=== PATIENT | male | born 1995 | race Caucasian/White ===

== ENCOUNTER 2021-02-20 13:15 | Emergency (ER) | payer OTHER ==
[~2021-02-20] VITALS: Ht 177.8 cm; Wt 68.0 kg
[2021-02-20 14:21] LABS: ABSOLUTE LYMPHOCYTES 1.7 thou/uL (0.8-5.3); ABSOLUTE MONOCYTES 0.3 thou/uL (0.0-1.2); ABSOLUTE NEUTROPHILS 3.2 thou/uL (1.6-8.1); BASOPHILS 0.8 %; EOSINOPHILS 0.2 %; HEMATOCRIT 41.4 % (42.0-52.0); HEMOGLOBIN 13.8 gm/dL (14.0-18.0); LYMPHOCYTES 32.9 %; MCH 25.9 pg (26.0-34.0); MCHC 33.2 g/dL (28.0-37.0); MCV 77.9 fL (80.0-100.0); MONOCYTES 4.8 %; NUCLEATED RBCS 0 /100WBC; PLATELET COUNT* 397 thou/uL (150-400); POLYS 61.3 %; RBC 5.32 mil/uL (4.50-6.00); RDW-CV 14.7 % (10.5-14.5); WBC 5.3 thou/uL (4.0-11.0)
[2021-02-20 14:31] LABS: CALCIUM 8.9 mg/dL (8.5-10.1); CREATININE 0.8 mg/dL (0.6-1.3); POTASSIUM 3.7 mmol/L (3.5-5.1)
[2021-02-20 14:36] LABS: ALBUMIN 3.8 g/dL (3.4-5.0); TOTAL BILIRUBIN 0.3 mg/dL (<0.1-1.0); TOTAL PROTEIN 8.4 g/dL (6.4-8.2)
[2021-02-20 14:57] LABS: URINE BLOOD NEGATIVE (Negative); URINE CLARITY CLEAR; URINE COLOR YELLOW; URINE GLUCOSE-RANDOM NEGATIVE (Negative); URINE KETONES TRACE (Negative); URINE LEUKOCYTES-REFLEX NEGATIVE (Negative); URINE NITRITE-REFLEX NEGATIVE (Negative); URINE PROTEIN NEGATIVE (Negative)
[2021-02-20 14:58] LABS: URINE BILIRUBIN 1+ (Negative)
[2021-02-20 14:59] LABS: ICTOTEST (BILI CONFIRMATORY) Negative (Negative)
[2021-02-20 15:05] LABS: AMP/METHAMP POSITIVE (Negative); BARBITURATES Negative (Negative); BENZODIAZEPINES Negative (Negative); COCAINE Negative (Negative); METHADONE Negative (Negative); OPIATES POSITIVE (Negative); PCP Negative (Negative); THC POSITIVE (Negative)
[2021-02-20] MEDS ORDERED: ZOFRAN ODT4 MG PO (15:17)
[2021-02-20] MEDS ORDERED: DOXYCYCLINE 10100 MG PO (15:17)
[2021-02-20 15:40] VITALS: BP 127/67
--- NOTE | 2021-02-21 08:31 | EKG ---
[place] [address] ELECTROCARDIOGRAM REPORT Name: CARMELLA CURTIS Room: [facility]#: [id number] Admission: 02/20/21 Attend Phys: Discharge: 02/20/21 Date of : [birth year] Date of Service: 02/20/21 1414 Report #: [id number] THIS REPORT FOR: //name// [facility] ED Test Date: 2021-02-20 Test Time: 14:14:22 Pat Name: CARMELLA CURTIS Department: Room: Gender: Student: [facility] : 1995 Requested By: Elidia Lay Order Number: [id number] MD: Saji Dunn Measurements Intervals [place] Rate: 86 P: 81 VA: 142 QRS: 40 QRSD: 102 T: 65 QT: 372 QTc: 445 Interpretive Statements Sinus rhythm Early repolarization No previous ECG available for comparison Electronically Signed On 02-21-2021 8:31:44 CDT by Saji Dunn [email or web address] <ELECTRONICALLY SIGNED> By: Saji Dunn MD, [facility] 02/21/21 0831 1414 1414 Saji Dunn MD, FACC /EPI
== END 2021-02-20 15:41 ==
LOC: M.ERS 13:15
PROVIDERS: Nurse Practitioner Family
DX: F19.10 Other psychoactive substance abuse, uncomplicated (principal); J45.909 Unspecified asthma, uncomplicated; F17.210 Nicotine dependence, cigarettes, uncomplicated